=== PATIENT | male | born 1980 | race Hispanic/Latino ===

== ENCOUNTER 2021-01-19 02:50 | Emergency (ER) | payer SELFPAY ==
[~2021-01-19] VITALS: Ht 165.1 cm; Wt 63.5 kg
[2021-01-19 03:55] VITALS: BP 124/84
[2021-01-19] MEDS ORDERED: KETOROLAC 60 MG VIAL (30MG/ML) ONE (04:14)
[2021-01-19] MEDS ORDERED: KETOROLAC 60 MG VIAL (30MG/ML) IM ONE (04:30)
[2021-01-19] MEDS ORDERED: MELO7.5T12 PO (05:38)
[2021-01-19] MEDS ORDERED: ACETAMINOPHEN 500 MG TABLET ONE (05:39)
[2021-01-19] MEDS ORDERED: ACETAMINOPHEN 500 MG TABLET PO ONE (06:00)
[2021-01-20] MEDS ORDERED: NAPR500T6 PO (18:12)
== END 2021-01-19 05:56 ==
LOC: EDH 02:50
DX: S29.011A Strain of muscle and tendon of front wall of thorax, initial encounter (principal); S39.012A Strain of muscle, fascia and tendon of lower back, initial encounter; S90.415A Abrasion, left lesser toe(s), initial encounter; S90.414A Abrasion, right lesser toe(s), initial encounter; S60.512A Abrasion of left hand, initial encounter; S60.511A Abrasion of right hand, initial encounter; S60.812A Abrasion of left wrist, initial encounter; S60.811A Abrasion of right wrist, initial encounter; I10 Essential (primary) hypertension; J45.909 Unspecified asthma, uncomplicated; M19.90 Unspecified osteoarthritis, unspecified site; F17.200 Nicotine dependence, unspecified, uncomplicated; X58.XXXA Exposure to other specified factors, initial encounter; Y93.89 Activity, other specified; Y92.89 Other specified places as the place of occurrence of the external cause; Y99.8 Other external cause status
CPT/HCPCS: 71101; 72100; 96372; 99284; J1885

== ENCOUNTER 2021-01-20 15:37 | Emergency (ER) | payer SELFPAY ==
[~2021-01-20] VITALS: Ht 165.1 cm; Wt 63.5 kg
[~2021-01-20 15:37] MED LIST: MELO7.5T12 PO
[2021-01-20] MEDS ORDERED: KETOROLAC 30MG VIAL (30MG/ML) IM STA (17:10)
[2021-01-20 18:00] VITALS: BP 130/76
[2021-01-20] MEDS ORDERED: NAPR500T6 PO (18:12)
== END 2021-01-20 18:28 | disposition home or self-care (01) ==
LOC: EDH 15:37
DX: S20.211A Contusion of right front wall of thorax, initial encounter (principal); M54.2 Cervicalgia; F17.200 Nicotine dependence, unspecified, uncomplicated; Z79.1 Long term (current) use of non-steroidal anti-inflammatories (NSAID); Y08.89XA Assault by other specified means, initial encounter; Y93.89 Activity, other specified; Y92.89 Other specified places as the place of occurrence of the external cause; Y99.8 Other external cause status
CPT/HCPCS: 71101; 72040; 96372; 99284; J1885